=== PATIENT | male | born 1960 | race Native Hawaiian/Other Pacific Islander ===

== ENCOUNTER 2017-05-28 23:52 | Observation (INO) | payer MEDICAID ==
[2017-05-28 23:53] VITALS: BMI 29.8
[2017-05-29] MEDS ORDERED: Sodium Chloride 0.9% 1,000 ML IV ONE ×2 (00:59→01:00)
[2017-05-29] MEDS ORDERED: Iohexol 240 (50 ml) PO ONE (01:01)
[2017-05-29] MEDS ORDERED: Iohexol 240 (50 ml) ONE (01:25)
[2017-05-29 01:33] LABS: BASO % 0.4 % (0.0-2.0); EOS # 0.1 K/uL (0.0-0.7); EOS % 0.6 % (0.0-4.0); HEMATOCRIT 43.8 % (35.0-51.0); LYMPH # 0.7 K/uL (1.0-4.3); LYMPH % 6.5 % (20.0-40.0); MEAN CELL VOLUME 95.3 fL (80.0-94.0); MEAN CORPUSCULAR HEMOGLOBIN 32.6 pg (27.0-31.0); MEAN CORPUSCULAR HGB CONC 34.2 g/dL (33.0-37.0); MEAN PLATELET VOLUME 7.6 fL (7.2-11.7); MONO # 0.5 K/uL (0.0-0.8); MONO % 4.3 % (0.0-10.0); PLATELET COUNT 252 K/uL (130-400); RED CELL DISTRIBUTION WIDTH 13.1 % (11.5-14.5); WHITE BLOOD COUNT 10.6 K/uL (4.8-10.8)
[2017-05-29 01:34] LABS: URINE BILIRUBIN NEGATIVE (NEGATIVE); URINE BLOOD NEGATIVE (NEGATIVE); URINE CALCIUM OXALATE CRYSTALS OCC /hpf (<OCC); URINE COLOR Yellow (YELLOW); URINE GLUCOSE (UA) NORMAL (Normal); URINE KETONE NEGATIVE (NEGATIVE); URINE LEUKOCYTE ESTERASE NEG Leu/uL (Negative); URINE PROTEIN NEGATIVE (NEGATIVE); URINE UROBILINOGEN NORMAL mg/dL (0.2-1.0); WBC URINE < 1 /hpf (0-5)
[2017-05-29 01:47] LABS: CHLORIDE 105 mmol/L (98-107); POTASSIUM 4.3 mmol/L (3.6-5.2); SODIUM 143 mmol/L (132-148)
[2017-05-29 01:49] LABS: ALB/GLOB RATIO 1.5 (1.0-2.1); ALKALINE PHOSPHATASE 59 U/L (38-126); AST/SGOT 39 U/L (17-59); BILIRUBIN,TOTAL 0.7 mg/dL (0.2-1.3); BLOOD UREA NITROGEN 16 mg/dL (9-20); CARBON DIOXIDE 25 mmol/L (22-30); GFR AFRICAN-AMERICAN > 60; TOTAL PROTEIN 7.7 g/dL (6.3-8.3)
[2017-05-29 01:50] LABS: ALT/SGPT 43 U/L (21-72); CALCIUM 9.6 mg/dl (8.6-10.4); GLUCOSE,RANDOM 119 mg/dL (75-110)
[2017-05-29] MEDS ORDERED: Iohexol 350mg/ml 100 ML ONE (02:06)
[2017-05-29 02:24] LABS: EOSINOPHIL 1 % (0-4); NEUTROPHIL 87 % (50-75); TOTAL CELLS COUNTED 100
--- NOTE | 2017-05-29 02:39 | C.PDOC ---
History Of Present Illness 56 year old male was brought to the ED with complaints of epigastric pain beginning this afternoon with associated nausea and vomiting. Patient denies hematochiza, diarrhea, fever, or chills. Chief Complaint (Nursing): Abdominal Pain History Per: Patient History/Exam Limitations: no limitations Onset/Duration Of Symptoms: Hrs Current Symptoms Are (Timing): Still Present Location Of Pain/Discomfort: Epigastric Radiation Of Pain To:: None Quality Of Discomfort: "Pain" Associated Symptoms: Nausea, Vomiting. denies: Fever, Chills, Diarrhea Exacerbating Factors: None Alleviating Factors: None Recent travel outside of the [place]: No Past Medical History Reviewed: Historical Data, Nursing Documentation, Vital Signs Vital Signs: Last Vital Signs Temp 98 F 05/29/17 05:53 Pulse 70 05/29/17 05:53 Resp 16 05/29/17 05:53 BP 113/73 05/29/17 05:53 Pulse Ox 96 05/29/17 06:18 - Medical History PMH: HTN, Hypercholesterolemia Surgical History: Appendectomy, Endoscopy Family History: States: Unknown Family Hx - Social History Hx Alcohol Use: No Hx Substance Use: No Review Of Systems Constitutional: Negative for: Fever, Chills Cardiovascular: Negative for: Chest Pain, Palpitations Respiratory: Negative for: Cough, Shortness of Breath Gastrointestinal: Positive for: Nausea, Vomiting, Abdominal Pain. Negative for : Diarrhea Physical Exam - Physical Exam Appears: Non-toxic, No Acute Distress Skin: Warm, Dry Head: Atraumatic, Normacephalic Eye(s): bilateral: Normal Inspection Oral Mucosa: Moist Neck: Normal ROM, Supple Chest: Symmetrical, No Deformity Cardiovascular: Rhythm Regular, No Murmur Respiratory: Normal Breath Sounds, No Rales, No Rhonchi, No Wheezing Gastrointestinal/Abdominal: Soft, Tenderness (epigastric tenderness ), No Distention, No Guarding, No Rebound Extremity: Normal ROM, No Tenderness Neurological/Psych: Oriented x3 ED Course And Treatment - Laboratory Results Result Diagrams: 05/29/17 01:21 05/29/17 01:21 ECG: Interpreted By Me, Viewed By Me ECG Rhythm: Sinus Rhythm ECG Interpretation: Normal, No Acute Changes Interpretation Of ECG: NSR, normal tracings. Rate From EC O2 Sat by Pulse Oximetry: 96 (room air ) Pulse Ox Interpretation: Normal - CT Scan/US Abdomen Pelvis CT Other Rad Studies (CT/US): Read By Radiologist, Radiology Report Reviewed CT/US Interpretation: FINDINGS: Lower thorax: Minimal atelectasis. Small hiatal hernia. ABDOMEN: Liver: Hepatic cyst. Gallbladder and bile ducts: Calcified gallstones. No ductal dilation. Pancreas: No ductal dilation. No mass. Spleen: No splenomegaly. Adrenals: No mass. Kidneys and ureters: No mass. No hydronephrosis. Stomach and bowel: Mild dilated loops of mid small bowel. Nondistended loops of distal small. bowel. Minimal haziness/fluid within associated small bowel mesentery. No definite mural. thickening. Appendix: No findings to suggest acute appendicitis. PELVIS: Bladder: Unremarkable. Reproductive: Mildly enlarged prostate. ABDOMEN and PELVIS: Intraperitoneal space: No significant fluid collection. No free air. Bones/ joints: Early degenerative changes of spine. No acute fracture. Soft tissues: Unremarkable. Vasculature: Mild atherosclerotic disease. No aneurysm. Lymph nodes: No pathologically enlarged lymph nodes. IMPRESSION: 1. Findings concerning for early small bowel obstruction. 2. Incidental/non-acute findings are described above. Progress Note: EKG and abdomen pelvis CT was ordered. Patient was given Toradol , Zofran, Protonix, and IV fluids. Dr. Shepherd was called and notified. Dr. Shepherd instructed to admit patient to hospital services. Disposition Discussed With : Anand Valdez Doctor Will See Patient In The: Hospital Counseled Patient/Family Regarding: Diagnosis - Disposition Disposition: HOSPITALIZED Disposition Time: 06:20 Condition: STABLE Forms: [facility] (Arabic), Work Excuse - POA Present On Arrival: None - Clinical Impression Clinical Impression: Abdominal pain, Small bowel obstruction - Scribe Statement The provider has reviewed the documentation as recorded by the Scribe Tayler Felix All medical record entries made by the Scribe were at my direction and personally dictated by me. I have reviewed the chart and agree that the record accurately reflects my personal performance of the history, physical exam, medical decision making, and the department course for this patient. I have also personally directed, reviewed, and agree with the discharge instructions and disposition.
--- NOTE | 2017-05-29 04:09 | CT ---
EXAM: CT Abdomen and Pelvis With Intravenous Contrast CLINICAL HISTORY: 56 years old, male; Pain; Abdominal pain; Additional info: Upper abd pain/ vomiting TECHNIQUE: Axial computed tomography images of the abdomen and pelvis with intravenous contrast. All CT scans at this facility use one or more dose reduction techniques, viz.: automated exposure control; ma/kV adjustment per patient size (including targeted exams where dose is matched to indication; i.e. head); or iterative reconstruction technique. Coronal and sagittal reformatted images were created and reviewed. CONTRAST: 100 mL of administered intravenously. COMPARISON: No relevant prior studies available. FINDINGS: Lower thorax: Minimal atelectasis. Small hiatal hernia. ABDOMEN: Liver: Hepatic cyst. Gallbladder and bile ducts: Calcified gallstones. No ductal dilation. Pancreas: No ductal dilation. No mass. Spleen: No splenomegaly. Adrenals: No mass. Kidneys and ureters: No mass. No hydronephrosis. Stomach and bowel: Mild dilated loops of mid small bowel. Nondistended loops of distal small bowel. Minimal haziness/fluid within associated small bowel mesentery. No definite mural thickening. Appendix: No findings to suggest acute appendicitis. PELVIS: Bladder: Unremarkable. Reproductive: Mildly enlarged prostate. ABDOMEN and PELVIS: Intraperitoneal space: No significant fluid collection. No free air. Bones/joints: Early degenerative changes of spine. No acute fracture. Soft tissues: Unremarkable. Vasculature: Mild atherosclerotic disease. No aneurysm. Lymph nodes: No pathologically enlarged lymph nodes. IMPRESSION: 1. Findings concerning for early small bowel obstruction. 2. Incidental/non-acute findings are described above.
[2017-05-29] MEDS ORDERED: HYDROmorphone 1 mg/ml ISec IVP PRN (06:24)
[2017-05-29] MEDS: Dextrose 5%/0.45% NS 1,000 ML IV SCH ×3 (06:41→20:34)
--- NOTE | 2017-05-29 09:03 | CP.PCM.CON ---
History of Present Illness - History of Present Illness History of Present Illness: General Surgery Dr. Meyers 56 y/o M w/ PMHx of DM2, HLD, BPH presents to the ED c/o abd pain. Pt states pain began around 4pm yesterday. Pain diffuse and crampy. Pt had 2BM prior to painand 3BM following after pain initiated. Pt denies melena or hematochezia. Pain currently 4/10 w/ no radiation. Nothing makes pain worse. Pain improved after Dilaudid administered in ED. Pt has nvr had this pain before. Pt admits to nausea, decreased appetite. Pt denies CP, SOB, F/C, D/C, dysuria, fequency. PMHx: see above Meds: reviewed in chart NKDA PSHx: open appendectomy 1975 SHx: previous tobacco use, 20 pack years. denies EtOH, drug use FHx: DM2 Review of Systems - Review of Systems All systems: reviewed and no additional remarkable complaints except (see HPI) Past Patient History - Past Medical History & Family History Past Medical History?: Yes - Past Social History Smoking Status: Never Smoked - CARDIAC Hx Hypercholesterolemia: Yes Hx Hypertension: Yes - PULMONARY Hx Respiratory Disorders: No - NEUROLOGICAL Hx Neurological Disorder: No - HEENT Hx HEENT Problems: Yes - RENAL Hx Chronic Kidney Disease: No - ENDOCRINE/METABOLIC Hx Endocrine Disorders: Yes Hx Diabetes Mellitus Type 2: Yes - HEMATOLOGICAL/ONCOLOGICAL Hx Blood Disorders: Yes Hx Blood Transfusions: Yes (due to bleeding hemorrhoids) Hx Blood Transfusion Reaction: Yes (itching ) - INTEGUMENTARY Hx Dermatological Problems: Yes (cysts on arms) - MUSCULOSKELETAL/RHEUMATOLOGICAL Hx Musculoskeletal Disorders: No - GASTROINTESTINAL Hx Gastrointestinal Disorders: Yes Hx Hemorrhoids: Yes - GENITOURINARY/GYNECOLOGICAL Hx Genitourinary Disorders: Yes Hx Prostate Problems: Yes - PSYCHIATRIC Hx Substance Use: No - SURGICAL HISTORY Hx Appendectomy: Yes - ANESTHESIA Hx Anesthesia: Yes Hx Anesthesia Reactions: No Hx Malignant Hyperthermia: No Meds Allergies/Adverse Reactions: Allergies Allergy/AdvReac Type Severity Reaction Status Date / Time No Known Allergies Allergy Verified 05/29/17 00:05 - Medications Medications: Current Medications Hydromorphone HCl (Dilaudid) 1 mg IVP Q4H PRN PRN Reason: Pain, moderate (4-7) Sodium Chloride (Sodium Chloride 0.9%) 1,000 mls @ 100 mls/hr IV .Q10H ONE Stop: 05/29/17 10:59 Last Admin: 05/29/17 02:49 Dose: 100 mls/hr Dextrose/Sodium Chloride (Dextrose 5%/0.45% Ns 1000 Ml) 1,000 mls @ 100 mls/hr IV .Q10H RICKIE Last Admin: 05/29/17 06:41 Dose: 100 mls/hr Physical Exam - Constitutional Appears: Non-toxic, No Acute Distress - Head Exam Head Exam: NORMAL INSPECTION - Eye Exam Eye Exam: Normal appearance - ENT Exam ENT Exam: Mucous Membranes Moist - Respiratory Exam Respiratory Exam: NORMAL BREATHING PATTERN. absent: Accessory Muscle Use, Respiratory Distress - Cardiovascular Exam Cardiovascular Exam: REGULAR RHYTHM. absent: Bradycardia, Tachycardia - GI/Abdominal Exam GI & Abdominal Exam: Distended (moderate), Soft. absent: Guarding, Rebound, Rigid, Tenderness Additional comments: vertical scar from previous appy - Extremities Exam Extremities exam: Positive for: normal inspection. Negative for: pedal edema - Neurological Exam Neurological exam: Alert, Oriented x3 - Psychiatric Exam Psychiatric exam: Normal Affect, Normal Mood - Skin Skin Exam: Dry, Intact, Normal Color, Warm Results - Vital Signs Recent Vital Signs: Last Vital Signs Temp 98.3 F 05/29/17 07:15 Pulse 68 05/29/17 07:15 Resp 16 05/29/17 07:15 BP 123/76 05/29/17 07:15 Pulse Ox 96 05/29/17 06:20 - Labs Result Diagrams: 05/29/17 01:21 05/29/17 01:21 Labs: Laboratory Results - last 24 hr 05/29/17 05/29/17 05/29/17 01:21 01:21 01:21 WBC 10.6 RBC 4.60 Hgb 15.0 Hct 43.8 MCV 95.3 H MCH 32.6 H MCHC 34.2 RDW 13.1 Plt Count 252 MPV 7.6 Neut % (Auto) 88.2 H Lymph % (Auto) 6.5 L [place] % (Auto) 4.3 Eos % (Auto) 0.6 Baso % (Auto) 0.4 Neut # 9.3 H Lymph # 0.7 L [place] # 0.5 Eos # 0.1 Baso # 0.0 Neutrophils % (Manual) 87 H Band Neutrophils % 2 Lymphocytes % (Manual) 7 L Monocytes % (Manual) 3 Eosinophils % (Manual) 1 Platelet Estimate Normal Sodium 143 Potassium 4.3 Chloride 105 Carbon Dioxide 25 Anion Gap 17 BUN 16 Creatinine 1.0 Est GFR ( Amer) > 60 Est GFR (Non-Af Amer) > 60 Random Glucose 119 H Calcium 9.6 Total Bilirubin 0.7 AST 39 ALT 43 Alkaline Phosphatase 59 Total Protein 7.7 Albumin 4.6 Globulin 3.1 Albumin/Globulin Ratio 1.5 Lipase 91 Urine Color Yellow Urine Clarity Clear Urine pH 6.0 Ur Specific [place] 1.016 Urine Protein Negative Urine Glucose (UA) Normal Urine Ketones Negative Urine Blood Negative Urine Nitrate Negative Urine Bilirubin Negative Urine Urobilinogen Normal Ur Leukocyte Esterase Neg Urine WBC (Auto) < 1 Ur Squamous Epith Cells < 1 Calcium Oxalate Crystal Occ H - Imaging and Cardiology CT scan - abdomen Status: Image reviewed by me, Report reviewed by me Assessment & Plan - Assessment and Plan (Free Text) Assessment: 56 y/o M w/ abd pain, CT showing possible early SBO - NPO, IVF - Pain management - monitor bowel fxn - NGT if vomiting Further recs per Dr. Mira Melara DO PGY2
--- NOTE | 2017-05-29 10:51 | CP.PCM.PN ---
Subjective - Date & Time of Evaluation Date of Evaluation: 05/29/17 Time of Evaluation: 11:00 - Subjective Subjective: Dr. Conroy progress note: Patient seen and examined in room. He says he came the hospital because of abdominal pain and nausea. He denies any episode of vomiting. He is also reporting passing gas but not having a bowel movement. Objective - Vital Signs/Intake and Output Vital Signs (last 24 hours): Temp Pulse Resp BP Pulse Ox 98.3 F 68 16 123/76 96 05/29/17 07:15 05/29/17 07:15 05/29/17 07:15 05/29/17 07:15 05/29/17 06:20 Intake and Output: 05/29/17 05/29/17 06:59 18:59 Intake Total 1300 Output Total 500 Balance 800 - Medications Medications: Current Medications Hydromorphone HCl (Dilaudid) 1 mg IVP Q4H PRN PRN Reason: Pain, moderate (4-7) Sodium Chloride (Sodium Chloride 0.9%) 1,000 mls @ 100 mls/hr IV .Q10H ONE Stop: 05/29/17 10:59 Last Admin: 05/29/17 02:49 Dose: 100 mls/hr Dextrose/Sodium Chloride (Dextrose 5%/0.45% Ns 1000 Ml) 1,000 mls @ 100 mls/hr IV .Q10H RICKIE Last Admin: 05/29/17 06:41 Dose: 100 mls/hr - Labs Labs: 05/29/17 01:21 05/29/17 01:21 - Constitutional Appears: Non-toxic, No Acute Distress - Eye Exam Eye Exam: Normal appearance - Respiratory Exam Respiratory Exam: Clear to Ausculation Bilateral. absent: Rhonchi, Wheezes - Cardiovascular Exam Cardiovascular Exam: REGULAR RHYTHM, RRR. absent: Gallop, Rubs - GI/Abdominal Exam GI & Abdominal Exam: Distended (mild), Normal Bowel Sounds. absent: Guarding, Tenderness - Extremities Exam Extremities Exam: Normal Inspection. absent: Pedal Edema - Back Exam Back Exam: NORMAL INSPECTION - Psychiatric Exam Psychiatric exam: Normal Affect, Normal Mood - Skin Skin Exam: Normal Color, Warm Assessment and Plan (1) SBO (small bowel obstruction) Assessment & Plan: Surgery consulted, Dr. Huang. Have started patient on liquid diet. Advance diet tomorrow if patient is able to tolerate liquid diet. Status: Acute (2) Diabetes mellitus Assessment & Plan: continue home PO medications and sliding scale insulin with accu checks achs as needed. Status: Acute (3) BPH (benign prostatic hyperplasia) Assessment & Plan: continue home flomax and Finesteride. Status: Acute (4) Prophylactic measure Assessment & Plan: SCDs, Lovenox 30mg SC Pepcid 20mg daily. Status: Acute
[2017-05-29] MEDS: (Novolin R) Insulin Human Regular 100 units/ml vial SC SCH (17:20)
[2017-05-29] MEDS: Enoxaparin 30 mg Syringe SC SCH (18:20)
[2017-05-30 01:31] VITALS: RESP 20; O2SAT 97
[2017-05-30] MEDS: Dextrose 5%/0.45% NS 1,000 ML IV SCH ×3 (06:49→12:30)
[2017-05-30 07:42] LABS: BASO % 0.9 % (0.0-2.0); EOS # 0.2 K/uL (0.0-0.7); EOS % 4.1 % (0.0-4.0); HEMATOCRIT 44.7 % (35.0-51.0); LYMPH # 1.3 K/uL (1.0-4.3); LYMPH % 23.1 % (20.0-40.0); MEAN CELL VOLUME 95.8 fL (80.0-94.0); MEAN CORPUSCULAR HEMOGLOBIN 32.2 pg (27.0-31.0); MEAN CORPUSCULAR HGB CONC 33.6 g/dL (33.0-37.0); MEAN PLATELET VOLUME 7.7 fL (7.2-11.7); MONO # 0.5 K/uL (0.0-0.8); MONO % 9.2 % (0.0-10.0); RED CELL DISTRIBUTION WIDTH 13.2 % (11.5-14.5); WHITE BLOOD COUNT 5.5 K/uL (4.8-10.8)
[2017-05-30 08:18] LABS: CHLORIDE 103 mmol/L (98-107)
[2017-05-30] MEDS: (Novolin R) Insulin Human Regular 100 units/ml vial SC SCH ×2 (08:18→12:02)
[2017-05-30 08:19] LABS: SODIUM 143 mmol/L (132-148)
[2017-05-30 08:20] LABS: POTASSIUM 3.6 mmol/L (3.6-5.2)
[2017-05-30 08:21] LABS: GFR AFRICAN-AMERICAN > 60
[2017-05-30 08:22] LABS: ALB/GLOB RATIO 1.4 (1.0-2.1); ALKALINE PHOSPHATASE 56 U/L (38-126); AST/SGOT 30 U/L (17-59); BILIRUBIN,TOTAL 0.7 mg/dL (0.2-1.3); BLOOD UREA NITROGEN 9 mg/dL (9-20); CARBON DIOXIDE 24 mmol/L (22-30); TOTAL PROTEIN 6.8 g/dL (6.3-8.3)
[2017-05-30 08:52] LABS: ALT/SGPT 34 U/L (21-72); CALCIUM 8.6 mg/dl (8.6-10.4); GLUCOSE,RANDOM 96 mg/dL (75-110)
--- NOTE | 2017-05-30 09:31 | HP ---
HISTORY OF PRESENT ILLNESS: Mr. Dumont is a 56-year-old male came to the hospital complaining of abdominal pain. The patient has small bowel obstruction in the emergency room x-ray on patient's last admission to the hospital. The patient has a history of appendectomy . SOCIAL HISTORY: The patient does not smoke or drink. . PHYSICAL EXAMINATION GENERAL: The patient is awake, alert, oriented. VITAL SIGNS: Temperature 98, pulse . CHEST: Symmetrical. HEART: Regular. ABDOMEN: Soft. EXTREMITIES: No edema. IMPRESSION AND PLAN: The patient suffers from . Patient bedrest, n.p.o., IV fluids. Anand Valdez MD
[2017-05-30] MEDS: Enoxaparin 30 mg Syringe SC SCH (09:32)
--- NOTE | 2017-05-30 10:23 | CP.PCM.PN ---
Subjective - Date & Time of Evaluation Date of Evaluation: 05/30/17 Time of Evaluation: 10:20 - Subjective Subjective: Surgery Pt s&e. NAEON. Pt having BM. Denies F/C/N/V/D/CP/SOB. Tolerating PO. + amb. + void. Pain controlled. Objective - Vital Signs/Intake and Output Vital Signs (last 24 hours): Temp Pulse Resp BP Pulse Ox 98.1 F 63 20 122/76 97 05/30/17 07:48 05/30/17 07:48 05/30/17 07:48 05/30/17 09:31 05/30/17 07:48 Intake and Output: 05/30/17 05/30/17 06:59 18:59 Intake Total 1250 800 Output Total 1600 Balance -350 800 - Medications Medications: Current Medications Enalapril Maleate (Vasotec) 10 mg PO DAILY [facility] Last Admin: 05/30/17 09:31 Dose: 10 mg Enoxaparin Sodium (Lovenox) 30 mg SC DAILY [facility] Last Admin: 05/30/17 09:32 Dose: 30 mg Famotidine (Pepcid) 20 mg PO DAILY [facility] Last Admin: 05/30/17 09:31 Dose: 20 mg Finasteride (Proscar) 5 mg PO DAILY [facility] Last Admin: 05/30/17 09:31 Dose: 5 mg Hydromorphone HCl (Dilaudid) 1 mg IVP Q4H PRN PRN Reason: Pain, moderate (4-7) Dextrose/Sodium Chloride (Dextrose 5%/0.45% Ns 1000 Ml) 1,000 mls @ 100 mls/hr IV .Q10H [facility] Last Admin: 05/30/17 06:50 Dose: Not Given Insulin Human Regular (Novolin R) 0 unit SC ACHS RICKIE PRN Reason: Protocol Last Admin: 05/30/17 08:18 Dose: Not Given Pioglitazone HCl (Actos) 45 mg PO DAILY [facility] Last Admin: 05/30/17 09:32 Dose: 45 mg Rosuvastatin Calcium (Crestor) 10 mg PO HS [facility] Last Admin: 05/29/17 21:11 Dose: 10 mg Tamsulosin HCl (Flomax) 0.4 mg PO DAILY [facility] Last Admin: 05/30/17 09:32 Dose: 0.4 mg - Labs Labs: 05/30/17 07:28 05/30/17 07:28 - Constitutional Appears: No Acute Distress - Head Exam Head Exam: ATRAUMATIC, NORMAL INSPECTION, NORMOCEPHALIC - Eye Exam Eye Exam: EOMI, Normal appearance, PERRL Pupil Exam: NORMAL ACCOMODATION, PERRL - ENT Exam ENT Exam: Mucous Membranes Moist, Normal Exam - Neck Exam Neck Exam: Full ROM, Normal Inspection. absent: Lymphadenopathy - Respiratory Exam Respiratory Exam: Clear to Ausculation Bilateral, NORMAL BREATHING PATTERN - Cardiovascular Exam Cardiovascular Exam: REGULAR RHYTHM, +S1, +S2. absent: Murmur - GI/Abdominal Exam GI & Abdominal Exam: Soft, Normal Bowel Sounds. absent: Distended, Firm, Guarding, Tenderness, Rebound - Extremities Exam Extremities Exam: Full ROM - Back Exam Back Exam: NORMAL INSPECTION - Neurological Exam Neurological Exam: Alert, Awake, CN II-XII Intact, Normal Gait, Oriented x3 - Psychiatric Exam Psychiatric exam: Normal Affect, Normal Mood - Skin Skin Exam: Dry, Intact, Normal Color, Warm Assessment and Plan - Assessment and Plan (Free Text) Assessment: 56 y/o M w/ abd pain, CT showing possible early SBO: resolved -Advance diet - Pain management -Ok to DC for surgical standpoint. -Medical management RORY Meyers
[2017-05-30 15:40] VITALS: BP 107/62; PULSE 80; TEMP 97.5
[2017-05-30] MEDS ORDERED: Influenza Virus Vaccine (Afluria Inactive dont use ) IM ONE (16:00)
[2017-05-30] MEDS ORDERED: Pneumococcal 23-Valent Vaccine IM ONE (16:00)
--- NOTE | 2017-05-30 19:05 | CP.PCM.PN ---
Subjective - Date & Time of Evaluation Date of Evaluation: 05/30/17 Time of Evaluation: 11:00 - Subjective Subjective: Dr. Valdez note: Patient is seen in room. He reports feeling well, no complains of nausea, vomiting, diarrhea, and is tolerating PO diet and also passing gas and having bowel movements. Objective - Vital Signs/Intake and Output Vital Signs (last 24 hours): Temp Pulse Resp BP Pulse Ox 97.5 F L 80 20 107/62 97 05/30/17 15:37 05/30/17 15:37 05/30/17 15:37 05/30/17 15:37 05/30/17 15:37 Intake and Output: 05/30/17 05/31/17 18:59 06:59 Intake Total 2100 Balance 2100 - Medications Medications: Current Medications Enalapril Maleate (Vasotec) 10 mg PO DAILY [facility] Last Admin: 05/30/17 09:31 Dose: 10 mg Enoxaparin Sodium (Lovenox) 30 mg SC DAILY [facility] Last Admin: 05/30/17 09:32 Dose: 30 mg Famotidine (Pepcid) 20 mg PO DAILY [facility] Last Admin: 05/30/17 09:31 Dose: 20 mg Finasteride (Proscar) 5 mg PO DAILY [facility] Last Admin: 05/30/17 09:31 Dose: 5 mg Hydromorphone HCl (Dilaudid) 1 mg IVP Q4H PRN PRN Reason: Pain, moderate (4-7) Dextrose/Sodium Chloride (Dextrose 5%/0.45% Ns 1000 Ml) 1,000 mls @ 100 mls/hr IV .Q10H [facility] Last Admin: 05/30/17 12:30 Dose: Not Given Insulin Human Regular (Novolin R) 0 unit SC ACHS [facility] PRN Reason: Protocol Last Admin: 05/30/17 12:02 Dose: Not Given Pioglitazone HCl (Actos) 45 mg PO DAILY [facility] Last Admin: 05/30/17 09:32 Dose: 45 mg Rosuvastatin Calcium (Crestor) 10 mg PO HS [facility] Last Admin: 05/29/17 21:11 Dose: 10 mg Tamsulosin HCl (Flomax) 0.4 mg PO DAILY [facility] Last Admin: 05/30/17 09:32 Dose: 0.4 mg - Labs Labs: 05/30/17 07:28 05/30/17 07:28 - Constitutional Appears: Non-toxic, No Acute Distress - Eye Exam Eye Exam: Normal appearance - ENT Exam ENT Exam: Normal Exam - Respiratory Exam Respiratory Exam: Clear to Ausculation Bilateral. absent: Rhonchi, Wheezes - Cardiovascular Exam Cardiovascular Exam: REGULAR RHYTHM, RRR, +S1, +S2. absent: Gallop, Rubs - GI/Abdominal Exam GI & Abdominal Exam: Soft, Normal Bowel Sounds. absent: Tenderness - Extremities Exam Extremities Exam: Normal Inspection. absent: Pedal Edema - Back Exam Back Exam: NORMAL INSPECTION - Psychiatric Exam Psychiatric exam: Normal Affect, Normal Mood - Skin Skin Exam: Normal Color Assessment and Plan (1) SBO (small bowel obstruction) Assessment & Plan: Patient was discharged home, will follow up with PMD after discharge. Status: Acute (2) Diabetes mellitus Assessment & Plan: continue his home medication after discharge. Status: Acute (3) BPH (benign prostatic hyperplasia) Assessment & Plan: continue his home medication Status: Acute (4) Prophylactic measure Status: Acute
--- NOTE | 2017-06-01 19:56 | CARD ---
APPROVED REPORT EKG Measurement Heart [id number] <Conclusion> Normal sinus rhythm Normal ECG
== END 2017-05-30 19:30 | disposition home or self-care (01) ==
LOC: C.ER 23:52 → C.9E 05-29 06:21 → C.5S 05-29 08:29
PROVIDERS: ADMIT Internal Medicine Pulmonary Disease; ATTEND Internal Medicine Pulmonary Disease
DX: K56.60 Unspecified intestinal obstruction (principal); E11.9 Type 2 diabetes mellitus without complications; E78.00 Pure hypercholesterolemia, unspecified; N40.0 Benign prostatic hyperplasia without lower urinary tract symptoms; I10 Essential (primary) hypertension; Z87.891 Personal history of nicotine dependence; Z23 Encounter for immunization
CPT/HCPCS: 36415; 74177; 80053; 81001; 82948; 83690; 84145; 85025; 90471; 90732; 96374; 96375; 99285; C9113; G0378; J1650; J1885; J2405; J7040; J7042; Q2035; Q9966; Q9967